=== PATIENT | female | born 1950 | race Caucasian/White ===

== ENCOUNTER 2016-10-05 08:26 | Day surgery (SDC) | payer MEDICARE, OTHER ==
[~2016-10-05] VITALS: Ht 157.5 cm; Wt 71.0 kg
[2016-10-05] VITALS (14 sets, daily range): BP systolic 133–162; BP diastolic 63–91; PULSE 70–98; RESP 18–25; Ht 157.5 cm; Wt 71.0 kg
[2016-10-05] MEDS ORDERED: CEFAZOLIN 2 GM/50 ML (PMX) 50 ML IVPB ONE (08:30)
[2016-10-05] MEDS ORDERED: SOD CHLORIDE 0.9% 1,000 ML IV SCH (08:30)
[2016-10-05] MEDS ORDERED: ATEN50TA PO (10:30)
[2016-10-05] MEDS ORDERED: AMLO-147 PO (10:30)
[2016-10-05] MEDS ORDERED: PROPOFOL 20 ML ONE (10:56)
[2016-10-05] MEDS ORDERED: FENTAnyl 50 MCG/ML VIAL ONE ×2 (10:57→11:54)
[2016-10-05] MEDS ORDERED: MIDAZOLAM 1 MG/ML 2 ML INJ ONE (10:57)
[2016-10-05] MEDS ORDERED: ESMOLOL 10 ML ONE (11:04)
[2016-10-05] MEDS ORDERED: PHENYLephrine (100 MCG/ML) 5ML SYG ONE ×2 (11:12→11:26)
[2016-10-05] MEDS ORDERED: DEXAMETHASONE 4 MG/ML 1 ML INJ ONE (11:14)
[2016-10-05] MEDS ORDERED: CEFAZOLIN 1 GM INJ ONE (11:14)
[2016-10-05] MEDS ORDERED: ONDANSETRON 4 MG INJ ONE (11:14)
[2016-10-05] MEDS ORDERED: EPHEDrine SULFATE 50 MG/5 ML SYG ONE (11:26)
--- NOTE | 2016-10-05 11:58 | OPR ---
DATE OF OPERATION: 10/05/2016 PREOPERATIVE DIAGNOSIS: Intraductal papillary carcinoma, left breast. POSTOPERATIVE DIAGNOSIS: Intraductal papillary carcinoma, left breast. OPERATION PERFORMED: Left partial mastectomy. ANESTHESIA: General. ANESTHESIOLOGIST: Dr. Zepeda SURGEON: Todd Card MD [employer] ATTENDANT: Bruno Del Angel MD INDICATIONS FOR PROCEDURE: The patient is a 66-year-old female who presented with a palpable mass i n her left breast. Radiographic workup and core biopsy revealed an intraductal papillary cancer. E xcision was recommended. Patient consented and was scheduled for surgery. DESCRIPTION OF PROCEDURE: The patient was brought to the operating theater, placed under general an esthesia. The left breast was prepped and draped in usual sterile fashion. A periareolar incision was made from the 9 o'clock position through the 12 o'clock position to the 3 o'clock position. Sub cutaneous tissue was dissected with cautery. Skin edges were elevated with skin hooks. Wide circum ferential dissection of the tissue associated with the mass then took place using cautery. Specimen was elevated, transected, oriented, and sent for her permanent pathologic analysis. The wound was irrigated. Minimal bleeding was controlled with cautery, and the skin was then reapproximated with a deep dermal layer of 4-0 Vicryl sutures, followed by final skin approximation with 5-0 PDS in subc uticular fashion. Benzoin and Steri-Strips were applied. Patient tolerated procedure well. Estima ana blood loss was 20 mL. There were no complications and the patient was transported in stable con dition to the recovery room. Dictated By: TODD CARD MD TL/KEVIN Conf#: [id number] DID#: [id number]
[2016-10-05] MEDS ORDERED: PHENYLephrine 40 MG in DEXTROSE 5% 496 ML IV ONE (12:00)
[2016-10-05] MEDS ORDERED: KETOROLAC 15 MG INJ IV ONE (12:51)
[2016-10-05] MEDS ORDERED: KETOROLAC 30 MG INJ IV ONE (13:00)
== END 2016-10-05 14:20 | disposition home or self-care (01) ==
LOC: SDS 08:26
PROVIDERS: ATTEND Surgery Surgical Oncology
DX: D05.12 Intraductal carcinoma in situ of left breast (principal); I10 Essential (primary) hypertension
CPT/HCPCS: 88307; J0690; J1100; J1885; J2250; J2370; J2405; J3010

== ENCOUNTER 2016-12-15 09:37 | Day surgery (SDC) | payer MEDICARE, OTHER ==
[~2016-12-15] VITALS: Ht 157.5 cm; Wt 72.6 kg
[2016-12-15] VITALS (10 sets, daily range): BP systolic 137–180; BP diastolic 68–83; PULSE 58–72; RESP 14–23; Ht 157.5 cm; Wt 72.6 kg
[~2016-12-15 09:37] MED LIST: AMLO-147 PO; ATEN50TA PO
[2016-12-15 10:48] LABS: ADD SCAN DIFF NO
--- NOTE | 2016-12-15 10:51 | RADRPT ---
PROCEDURE: Chest Radiograph. CLINICAL INDICATION: Preop TECHNIQUE: Single frontal chest radiograph. COMPARISON: None available FINDINGS: Heart size is within normal limits. Atherosclerotic calcifications are present. No infiltrate or effusion is seen. The bones are intact. IMPRESSION: 1. No evidence of acute cardiopulmonary disease. 2. Atherosclerotic vascular disease. RPTAT: AA .Walter Lugo MD, MD Date Time Electronically viewed and signed by .Walter Lugo MD, MD on 12/15/2016 10:51 .B/
[2016-12-15 10:55] LABS: BASOPHILS % 0.3 % (0.0-2.0); EOSINOPHILS # 0.1 10^3/ul (0.0-0.5); EOSINOPHILS % 0.9 % (0.0-7.0); HEMATOCRIT 42.8 % (37.0-47.0); HEMOGLOBIN 13.5 g/dl (12.0-16.0); LYMPHOCYTES % 38.3 % (15.0-51.0); MEAN CORPUSCULAR HEMOGLOBIN 26.3 pg (29.0-33.0); MEAN CORPUSCULAR HGB CONC 31.5 g/dl (32.0-37.0); MEAN CORPUSCULAR VOLUME 83.4 fl (82.0-101.0); MONOCYTE # 0.6 10^3/ul (0.3-0.9); MONOCYTES % 7.7 % (0.0-11.0); NEUTROPHIL # 4.2 10^3/ul (1.6-7.5); NEUTROPHILS % 52.5 % (39.0-77.0); PLATELET COUNT 255 10^3/UL (140-415); RED BLOOD COUNT 5.13 10^6/ul (4.20-5.40); RED CELL DISTRIBUTION WIDTH 13.2 % (11.5-14.5); WHITE BLOOD COUNT 7.9 10^3/ul (4.8-10.8)
[2016-12-15] MEDS ORDERED: HYDROCODONE/APAP (7.5/325) TAB PO PRN (11:30)
[2016-12-15 11:34] LABS: ALBUMIN 4.2 g/dl (3.3-4.9); ALBUMIN/GLOBULIN RATIO 1.05; BILIRUBIN,INDIRECT 0.3 mg/dl (0-1.1); BILIRUBIN,TOTAL 0.3 mg/dl (0.2-1.3); TOTAL PROTEIN 8.2 g/dl (6.1-8.1)
[2016-12-15 11:36] LABS: CALCIUM 9.1 mg/dl (8.4-10.2); CREATININE 0.52 mg/dl (0.44-1.00); POTASSIUM 4.5 mmol/L (3.5-5.1)
[2016-12-15 11:38] LABS: INR 0.92; PROTIME 12.4 Sec (12.2-14.2)
[2016-12-15] MEDS ORDERED: SOD CHLORIDE 0.9% 1,000 ML IV SCH (12:00)
[2016-12-15] MEDS ORDERED: CEFAZOLIN 2 GM/50 ML (PMX) 50 ML IVPB ONE (12:00)
[2016-12-15] MEDS ORDERED: LIDOCAINE 1% (MDV) 20 ML INJ ONE (13:39)
[2016-12-15] MEDS ORDERED: PROPOFOL 20 ML ONE (13:39)
[2016-12-15] MEDS ORDERED: ISOSULFAN BLUE 1% 5 ML INJ SC ONE ×2 (13:39→13:49)
[2016-12-15] MEDS ORDERED: METOPROLOL 5 MG INJ ONE (13:40)
[2016-12-15] MEDS ORDERED: ACETAMINOPHEN 1000MG/100ML IV 100 ML ONE (13:50)
[2016-12-15] MEDS ORDERED: FAMOTIDINE 20 MG INJ ONE (13:58)
[2016-12-15] MEDS ORDERED: CEFAZOLIN 1 GM INJ ONE (13:58)
[2016-12-15] MEDS ORDERED: DEXAMETHASONE 4 MG/ML 1 ML INJ ONE (13:58)
[2016-12-15] MEDS ORDERED: ONDANSETRON 4 MG INJ ONE (13:58)
[2016-12-15] MEDS ORDERED: PHENYLephrine (100 MCG/ML) 5ML SYG ONE (14:02)
[2016-12-15] MEDS ORDERED: FENTAnyl 50 MCG/ML VIAL ONE (14:03)
[2016-12-15] MEDS ORDERED: MEPERIDINE 25 MG INJ IV PRN (14:30)
[2016-12-15] MEDS ORDERED: HYDROmorphONE (0.2 MG/ML) 10ML SYG IV PRN ×2 (14:30)
[2016-12-15] MEDS ORDERED: hydrALAzine 20 MG INJ IV PRN (14:30)
[2016-12-15] MEDS ORDERED: DIPHENHYDRAMINE 50 MG INJ IV PRN (14:30)
--- NOTE | 2016-12-15 15:15 | OPR ---
DATE OF OPERATION: 12/15/2016 PREOPERATIVE DIAGNOSIS: Invasive cancer, left breast, need for left sentinel lymph node biopsy. POSTOPERATIVE DIAGNOSIS: Invasive cancer, left breast, need for left sentinel lymph node biopsy. OPERATION PERFORMED: Left axillary sentinel lymph node biopsy. ANESTHESIA: General. ANESTHESIOLOGIST: David Zepeda DO SURGEON: Todd Daily MD [employer]ORER: Osorio López MD INDICATIONS FOR PROCEDURE: The patient is a 66-year-old female, previously underwent excisional bio psy was found to have ductal carcinoma in situ with areas of microinvasion. She was counseled as to the need for sentinel lymph node biopsy. She consented and was scheduled for surgery. DESCRIPTION OF PROCEDURE: The patient was brought to the operating theater, placed under general an esthesia. The left breast and axillary region were prepped and draped in usual sterile fashion, 4 m L of 1% Lymphazurin blue dye were then injected adjacent to the biopsy cavity. The breast was gentl y massaged for approximately 12 minutes. At this point, a 3 cm incision was made in the left axilla ry hairline. Subcutaneous tissue was dissected with cautery down through the clavipectoral fascia. The clavipectoral fascia was incised. A dye-stained lymphatic was traced to an obvious sentinel ly mph node. The sentinel lymph node was resected using the LigaSure device. Intraoperative pathologi c analysis performed by Dr. Atul Castro was negative for metastatic disease. Therefore, no furt her nodes were taken. The specimen was sent for permanent pathologic analysis. The wound was irrig ated. Minimal bleeding was controlled with cautery, and the skin incision was reapproximated with a 4-0 Vicryl suture in subcuticular fashion. The patient tolerated procedure well. Estimated blood loss was 10 mL. There were no complications and the patient was transported in stable condition to the recovery room. Dictated By: TODD DAILY MD TL/KEVIN Conf#: [id number] DID#: [id number] CC: ISAAC LÓPEZ MD;*EndCC*
--- NOTE | 2016-12-15 16:42 | RADRPT ---
Vent Rate: 64 bpm RR Interval: 0 msec [place] Interval: 212 msec QRS Duration: 100 msec QT Interval: 460 msec QTC Interval: 474 msec P-R-T [place]: 59 - -36 - 69 degrees Sinus rhythm with 1st degree AV block Left axis deviation Abnormal ECG Electronically Signed By: Sg Khan [id number]
== END 2016-12-15 16:15 | disposition home or self-care (01) ==
LOC: SDS 09:37
PROVIDERS: ATTEND Surgery Surgical Oncology
DX: C50.912 Malignant neoplasm of unspecified site of left female breast (principal); I10 Essential (primary) hypertension
CPT/HCPCS: 38500; 38792; 71010; 80053; 85025; 85610; 85730; 88309; 88331; 93005; J0690; J1100; J2405; J3010; Q9968; J0131; J2370

== ENCOUNTER 2018-08-01 07:19 | Day surgery (SDC) | END 2018-08-02 15:42 | disposition home or self-care (01) ==